=== PATIENT | male | born 1975 | race Caucasian/White ===

== ENCOUNTER 2024-02-13 02:44 | Emergency (ER) | payer MEDICARE, MEDICAID, SELFPAY ==
[2024-02-13 02:45] VITALS: BP 164/96; PULSE 117; RESP 18; TEMP 36.8; O2SAT 97; BMI 28.2
[2024-02-13 02:52] VITALS: BP 161/92; PULSE 99; RESP 18; TEMP 36.9; O2SAT 99
--- NOTE | 2024-02-13 03:23 | EX.ED.VIS.EY ---
HPI History of Present Illness Chief Complaint: Eye Problem Detail of Chief Complaint: Bilateral eye discomfort and redness for 2 weeks. Informant: patient Onset/Context/Timing Location: Bilateral Eyes Onset: Weeks Context: Gradual Onset Timing: Continuous Current Severity: Moderate Maximum Severity: Moderate Associated Symptoms Associated Symptoms - Eyes: Burning History of injury: No Visual correction: Glasses Narrative Narrative: 49-year-old male history of asthma and, COPD and psoriatic arthritis. He has had irritation of both eyes for several weeks to is much as a month. He is seen at [facility] urgent care and [facility] Dr. Márquez last Sunday. Patient wears glasses but no contacts. Has never had eye surgery. Has been placed on erythromycin ointment drops and then sulfa-based eyedrops which he was told to stop because it seems like they are irritating his eyes more. He was diagnosed according to him with viral conjunctivitis. He denies any significant visual change. No trauma or injury. Prior similar symptoms: Yes Recent Illness/Hospitalization: No PFSH PFSH Medical History Osteoarthritis H/O psoriatic arthritis GERD (gastroesophageal reflux disease) Sleep apnea COPD (chronic obstructive pulmonary disease) Asthma Allergy/AdvReac Type Severity Reaction Status Date / Time diphenhydramine (From Allergy Intermediate Itching Verified 02/13/24 02:48 Benadryl) hydrocodone Allergy Intermediate Itching Verified 02/13/24 02:48 Surgical History H/O adenoidectomy H/O inguinal hernia repair History of tonsillectomy Social History Smoking Status: Former smoker ROS ROS ED ROS Narrative URI symptoms. Eye irritation. Constitutional Constitutional ED: Denies fever(s) Eyes Eyes: Denies blurry vision ENT ENT ED: Reports rhinorrhea; Denies ear pain Cardiovascular Cardiovascular: Denies chest pain Respiratory/Chest Respiratory/Chest: Reports cough; Denies dyspnea or dyspnea on exertion Gastrointestinal Gastrointestinal: Denies abdominal pain Genitourinary Genitourinary ED: Denies dysuria Musculoskeletal Musculoskeletal: Denies arthralgias Integumentary Denies abscess Neurologic Neurologic: Denies headache(s) Psychiatric Psychiatric: Denies anxiety Endocrine Endocrinology: Denies polydipsia Hematologic/Lymphatic Hematologic/Lymphatic: Denies easy bleeding Allergic/Immunologic Allergic/Immunologic ED: Denies mouth swelling EXAM Physical Exam Narrative Exam Narrative: Well-appearing 49-year-old male. Vital signs stable afebrile. H EENT exam pupils round react light. He has increased watering of both eyes. Currently no discharge. No orbital or periorbital cellulitis or swelling. Both eyes are significantly injected and red. Again no puslike discharge. No preauricular adenopathy. Neck nontender. No lymphadenopathy. Lungs clear to auscultation. Heart regular rhythm. Otherwise exam unremarkable. Const Vital Signs: 02/13/24 02:45 02/13/24 02:52 02/13/24 02:53 Temperature 98.2 F 98.4 F Temperature Source Temporal Temporal Pulse Rate 117 H 99 Respiratory Rate 18 18 Respiratory Effort Short of Breath Respiratory Pattern Normal Blood Pressure 164/96 H 161/92 H Blood Pressure Mean 118 115 Pulse Ox 97 99 Oxygen Delivery Method Room Air Room Air Positive well nourished and well developed; Negative for cachectic, contractures or unkempt General Appearance ED: well developed and NAD; Negative for unkempt, cachectic or contractures Nutritional Appearance: Negative for cachectic HEENT atraumatic; Negative for trauma or tenderness Nose: external nose normal and nares normal Eyes Eyes Narrative: Bilateral eyes red. Increased watering. No discharge. No orbital or periorbital cellulitis. No significant swelling. No preauricular lymphadenopathy. Neck no lymphadenopathy, supple and no JVD General: Negative for tenderness Resp normal respiratory effort, no retractions, no use of accessory muscles and clear to auscultation bilaterally Cardio regular rate, regular rhythm, S1 normal heart sound, S2 normal heart sound and no murmurs GI non-tender, non-distended and no masses Inspection: Negative for other Auscultation: normoactive bowel sounds Palpation: soft Back/Spine no CVA tenderness General Back: Negative for CVA tenderness Extremity normal to inspection General Extremety ED: Negative for edema or other findings General Extremity: Negative for edema or other findings Neuro oriented x3 and CN's II-XII intact bilaterally Sensorium / Orientation: alert, oriented to person, oriented to place and oriented to time; Negative for orientation impaired Motor Exam: strength 5/5 throughout Psych Appearance: Negative for unkempt Mood & Affect: Negative for depressed, anxious or tearful Skin no wounds Lesions: no lesions Rashes: no rashes Trauma: Negative for abrasion or laceration MDM MDM MDM Narrative Medical decision making narrative: 49-year-old male with 2 to 4-week history of eye irritation. He has been on eyedrops and steroid drops for his eyes along with both erythromycin eye ointment and Bactrim eyedrops. He stopped all that. Currently he is only using natural tears. Complaining of increasing redness. Tetracaine and fluorescein was instilled in both eyes. I did a slit-lamp examination of his eyes. They are definitely red and injected. They are watering. There is no discharge. No foreign body noted. No corneal abrasion noted. This appears to be most likely either an allergic conjunctivitis or a viral conjunctivitis. But he seems to have had it for 2 or more weeks. Swelling is less likely to be a viral conjunctivitis. He was using sulfa eyedrops which could have caused an allergic reaction. He will be discharged to home. He is already seen [facility] I told him to call them this morning which is like 4 hours from now tell them you are in the ER and follow-up with them later today. Patient is comfortable with the plan. Lab Data Lab results narrative: Visual acuity without his glasses because he does not have them with him. 20/50 right eye. 20/40 left eye. 20/30 both eyes. Discharge Plan Triage Chief Complaint: Eye Problem Other Complaint: Cold Sx ED Provider: Hakan Veras Dx/Rx/DC Orders Clinical Impression: Conjunctivitis Instructions: ED Conjunctivitis, Nonspecific Referrals: Ghassan Márquez MD [Med Staff - Active Staff] - As soon as possible (Call the eye doctor's office this morning around 8 or 9 AM. Tell them that your patient Dr. Márquez you saw him on Sunday and you were seen in the ER this morning. And you need to be rechecked today.) Activity Restrictions/Additional Instructions: This is most likely either a viral conjunctivitis which to be like pinkeye or an allergic conjunctivitis like an allergic reaction or it could be secondary to psoriatic arthritis and be an autoimmune reaction. Do not put anything else in your eye for now until seen by the traffic control supervisor. Call and follow-up with [facility] today. Tell them that you saw Dr. Márquez on Sunday. You were seen in the ER this morning. And we wanted you reevaluated today. Print Language: Gabonese Disposition Disposition: Home, Self Care
[2024-02-13] MEDS: Fluorescein 1 MG STRIP 1 STRIP EACH EYE (03:28)
[2024-02-13] MEDS: Tetracaine 0.5% Ophthalmic Bottle 1 DRP EACH EYE (03:29)
[2024-02-13 04:13] VITALS: BP 145/70; PULSE 80; RESP 18; TEMP 36.7; O2SAT 100
== END 2024-02-13 04:39 | disposition home or self-care (01) ==
LOC: ED 04:24
PROVIDERS: Emergency Provider Emergency Medicine; Visit Provider Emergency Medicine
DX: H10.9 Unspecified conjunctivitis (principal); J44.9 Chronic obstructive pulmonary disease, unspecified; G47.30 Sleep apnea, unspecified; Z87.891 Personal history of nicotine dependence
CPT/HCPCS: 99284